=== PATIENT | female | born 2000 | race Caucasian/White ===

== ENCOUNTER 2019-08-29 13:29 | Inpatient (IN) | payer OTHER ==
[2019-08-29] MEDS ORDERED: Iopamidol-370 76% 500 ML 1 ML ONE (14:00)
[2019-08-29 14:28] LABS: Hemoglobin 13.7 g/dL (12.0-16.0); Mean Corpuscular HGB CONC 34.2 g/dL (32.0-36.0); Mean Corpuscular Hemoglobin 30.1 pg (25.0-35.0); Mean Corpuscular Volume 87.9 fL (78.0-98.0); Mean Platelet Volume 8.1 fL (7.4-10.4); Platelet Count 223 thou/uL (130-400); RBC Distribution Width 12.5 % (11.5-14.5); Red Blood Cell (RBC) Count 4.54 mill/uL (4.00-5.20); White Blood Cell (WBC) Count 14.5 thou/uL (4.8-10.8)
[2019-08-29 14:50] LABS: ALT (SGPT) 352 U/L (8-55); AST (SGOT) 239 U/L (5-30); Albumin 3.7 g/dL (3.5-5.0); Alkaline Phosphatase 496 U/L (40-100); Anion Gap 12 mmol/L (10-20); BUN (Urea Nitrogen) 7 mg/dL (8.4-21.0); Bilirubin, Total 6.5 mg/dL (0.2-1.2); Calc. Creatinine Clearance 0 mL/min (70-130); Calcium 9.3 mg/dL (7.8-10.44); Carbon Dioxide 29 mmol/L (22-29); Chloride 97 mmol/L (98-107); Estimated GFR-MDRD Greater than 90; Globulin 3.9 g/dL (2.4-3.5); Glucose 98 mg/dL (70-105); Potassium 3.7 mmol/L (3.5-5.1); Protein, Total 7.6 g/dL (6.0-8.3); Sodium 134 mmol/L (136-145)
[2019-08-29 15:05] LABS: Band 13 % (5-11); Lymphocytes 11 % (28-48); MDiff Complete? YES; Monocytes 11 % (0-4); Myelocyte 1 % (0-0); Neutrophil 6 % (31-61); Platelet Morphology Comment Appears Adequate; Polychromasia SLIGHT = 2-3 cells (100X) (0-2/hpf); Reactive Lymphocytes 58 % (0-10); Reflex for Review?? YES; Target Cells SLIGHT = 2-5 cells (100X) (0-1/hpf)
--- NOTE | 2019-08-29 16:17 | ULT ---
Sonogram right upper quadrant HISTORY: Right upper quadrant pain. FINDINGS: At the gallbladder fossa, a fluid distended gallbladder is not visible. A collapsed structu re has the appearance of a completely decompressed gallbladder without focal abnormality evident. No shadowing stones visible. Common duct is 0.4 cm. Liver unremarkable without focal mass or intrahepatic biliary dilatation. No f ree fluid. IMPRESSION: No evidence of biliary obstruction or other acute abnormality.
[2019-08-29] MEDS ORDERED: metroNIDAZOLE 500 MG/100 ML BAG ONE (17:01)
[2019-08-29] MEDS ORDERED: Vancomycin HCl 1.25 GM in Sodium Chloride 0.9% 250 ML 250 ML IVPB SCH (17:15)
[2019-08-29 18:07] LABS: HBCM Index 0.46 S/CO (0-0.79); HBSAg Index 0.26 S/CO (0-0.99); Hep A IgM AB Non-Reactive (NonReactive); Hep A IgM S/CO 0.39 S/CO (0-0.79); Hep B Surf Ag Non-Reactive S/CO (NonReactive); Hep C IgG Ab Non-Reactive (NonReactive); Hep C Index 0.18 S/CO (0-0.79); Hepatitis B Core IgM Abs Non-Reactive (NonReactive)
[2019-08-29 18:12] LABS: Bacteria/HPF None Seen HPF (None Seen); Bilirubin 2+ (Negative); Blood, Urine Negative (Negative); Clarity Clear (Clear); Glucose, Urine (Dipstick) Normal (Negative); Leukocyte Negative Leu/uL (Negative); Nitrite Negative (Negative); Protein, Urine (Dipstick) 30 mg/dL (Neg-Trace); RBC/HPF 0-3 HPF (0-3); Squamous Epithelial 0-3 HPF (0-3); WBC/HPF 0-3 HPF (0-3)
[2019-08-29 18:14] LABS: Pregnancy Test - Urine (BHCG) Negative (Negative); Pregu Control Background? CLEAR/WHITE (CLR/WHITE); Pregu Control Bar Appear? YES (CONTROL BAR)
[2019-08-29] MEDS ORDERED: Sodium Chloride 0.9% 1,000 ML IV SCH (19:30)
--- NOTE | 2019-08-29 20:12 | CT ---
CT ABDOMEN AND PELVIS WITH IV CONTRAST: History: 18-year-old female with elevated LFTs. Patient has been diagnosed with Hepatitis B and infec tious mono. FINDINGS: The lung bases are clear. The liver, pancreas, adrenal glands, and kidneys are normal. The gallbladde r is contracted. The spleen is enlarged measuring 14 cm in AP dimension. No free air or lymphadenopathy is seen. There is a small amount of free fluid in the pelvis. Uterus a nd ovaries are present. Large and small bowel loops are not abnormally dilated. Appendix appears norm al. IMPRESSION: 1. Small amount of free fluid in the pelvis. 2. Mild splenomegaly. POS: OFF
[2019-08-29 21:38] VITALS: BMI 21.3
[2019-08-29] MEDS ORDERED: Guaifenesin DM 100-10/5 ML UDCUP PO PRN (22:25)
[2019-08-29] MEDS ORDERED: Senokot S 8.6-50 MG TAB PO PRN (22:25)
[2019-08-29] MEDS ORDERED: Ondansetron PF 4 MG/2 ML Vial IVP PRN (22:25)
[2019-08-29] MEDS ORDERED: Ondansetron ODT 4 MG TAB PO PRN (22:25)
[2019-08-29] MEDS ORDERED: traMADol HCl 50 MG TAB PO PRN (22:47)
--- NOTE | 2019-08-29 23:01 | HP ---
PRIMARY CARE PHYSICIAN: [facility] in [facility]. CHIEF COMPLAINT: Jaundice. HISTORY OF PRESENT ILLNESS: This is a 18-year-old white female without significant past medical history, who presented to the [facility] about 9 days ago with fevers, chills, body aches, runny nose, sore throat. She was diagnosed with infectious mononucleosis. The patient had a followup and she was noted to be jaundiced and so was sent into the hospital. Here, she was noted to have a significantly elevated bilirubin of 6.5, as well as elevations of her transaminases. She did have a leukocytosis of 14,000, however, was primarily reactive lymphocytes consistent with her diagnosis of mononucleosis. Urine was negative for infection. She had hepatitis A, B, and C panel done in the emergency room, which were all negative. She also had an ultrasound and a CT of the abdomen in the emergency room, which showed no evidence of biliary obstruction or other acute abnormalities in the liver. She did have some mild splenomegaly and a small amount of free fluid in the pelvis on the CT scan. The patient reports that she has been asymptomatic for the last 3 days or so except for the development of jaundice. All of her fevers have resolved and she has had no other symptoms at this time. REVIEW OF SYSTEMS: CONSTITUTIONAL: Initial fevers and chills as per HPI, now resolved. EYES: No double vision or blurred vision. ENT: No congestion, drainage, or any active sore throat. CARDIOVASCULAR: No chest pain. No palpitations or racing heart. PULMONARY: No coughing, wheezing, or shortness of breath. GASTROINTESTINAL: No abdominal pain. No nausea or vomiting. No diarrhea or constipation. GENITOURINARY: No dysuria or hematuria. MUSCULOSKELETAL: No muscle aches or joint pain. SKIN: No rashes or other lesions. She has had some itching for the last couple of days and she has had the development of jaundice of her skin and eyes. NEUROLOGICAL: No numbness, tingling, or focal weakness. PAST MEDICAL HISTORY: None. PAST SURGICAL HISTORY: None. PAST SOCIAL HISTORY: No tobacco, alcohol, or illicit drug use. The patient is a student at [employer]. FAMILY HISTORY: No family medical history that she knows of. ALLERGIES: THE PATIENT IS ALLERGIC TO CEFDINIR. CURRENT MEDICATIONS: 1. Nesha 24 Fe 1 mg/20 mcg tablets one tablet each night. 2. Tramadol as needed for pain. PHYSICAL EXAMINATION: VITAL SIGNS: Blood pressure 108/70, pulse 85, respirations 20, O2 saturation 97%, temperature 98. GENERAL: This is a well-developed, well-nourished white female, in no acute distress. HEENT: Pupils are equal, round, and reactive to light. She does have significant scleral icterus. Oropharynx clear without lesions, erythema, or exudate. NECK: Supple. No lymphadenopathy. No thyroid nodules or enlargement. HEART: Regular rate and rhythm. No murmurs, rubs, or gallops. LUNGS: Clear to auscultation bilaterally. No wheezes, crackles, or rhonchi. ABDOMEN: Soft, nontender to palpation. Normoactive bowel sounds. No hepatosplenomegaly or other masses palpable. EXTREMITIES: No clubbing, cyanosis, or edema. SKIN: She has diffuse jaundice, otherwise no other rashes or lesions. NEUROLOGICAL: Intact strength and sensation in all extremities. No facial droop. PSYCHIATRIC: Alert, oriented x3. Normal mood and affect. LABORATORY DATA: CBC with a white blood cell count of 14,000, 58% reactive lymphocytes, the rest of CBC was normal. Complete metabolic panel is notable for sodium of 134, chloride of 97, BUN of 7, total bilirubin of 6.5, AST of 239, ALT of 352, alkaline phosphatase of 496. The rest was normal. Urinalysis showed 30 protein, trace ketones, 2+ bilirubin and elevated urobilinogen. No evidence of infection. Serologies are negative for hepatitis A IgM antibody negative. Hepatitis B surface antigen, negative for hepatitis B core IgM antibody, and negative for hepatitis C antibody. ASSESSMENT: 1. Acute jaundice, likely secondary to her infectious mononucleosis. No evidence for biliary obstruction at this time. We will consult Gastroenterology to evaluate her and we will recheck the enzymes in the morning. Hopefully, if they are improving, she will go home. We will get Gastroenterology's recommendations as well for any further workup or treatment needed. 2. Infectious mononucleosis, appears to be improving except as far as the hepatitis and cholestasis are concerned. 3. Gastrointestinal prophylaxis. Put the patient on Pepcid while in the hospital. 4. Deep venous thrombosis prophylaxis. We will have the patient ambulate frequently. Job ID: [id number]
[2019-08-29] MEDS: Sodium Chloride 0.9% 1,000 ML IV SCH (23:04)
[2019-08-30] MEDS: Sodium Chloride 0.9% 1,000 ML IV SCH (05:39)
[2019-08-30 05:45] LABS: INR-International Normal Ratio 0.9; Prothrombin Time 12.3 SEC (12.0-14.7)
[2019-08-30 06:09] LABS: ALT (SGPT) 289 U/L (8-55); AST (SGOT) 191 U/L (5-30); Albumin 3.2 g/dL (3.5-5.0); Alkaline Phosphatase 440 U/L (40-100); Anion Gap 11 mmol/L (10-20); BUN (Urea Nitrogen) 4 mg/dL (8.4-21.0); Bilirubin, Total 5.8 mg/dL (0.2-1.2); Calc. Creatinine Clearance 132 mL/min (70-130); Calcium 8.8 mg/dL (7.8-10.44); Carbon Dioxide 25 mmol/L (22-29); Chloride 103 mmol/L (98-107); Estimated GFR-MDRD Greater than 90; Globulin 3.5 g/dL (2.4-3.5); Glucose 97 mg/dL (70-105); Potassium 4.1 mmol/L (3.5-5.1); Protein, Total 6.7 g/dL (6.0-8.3); Sodium 135 mmol/L (136-145)
[2019-08-30 08:02] LABS: Band 5 % (5-11); Hemoglobin 12.3 g/dL (12.0-16.0); Lymphocytes 40 % (28-48); MDiff Complete? YES; Mean Corpuscular HGB CONC 33.3 g/dL (32.0-36.0); Mean Corpuscular Hemoglobin 29.3 pg (25.0-35.0); Mean Corpuscular Volume 87.9 fL (78.0-98.0); Mean Platelet Volume 8.5 fL (7.4-10.4); Metamyelocyte 2 % (0-0); Monocytes 8 % (0-4); Myelocyte 1 % (0-0); Neutrophil 9 % (31-61); Platelet Count 231 thou/uL (130-400); Platelet Morphology Comment Appears Adequate; RBC Distribution Width 12.7 % (11.5-14.5); RBC Morphology Normal; Reactive Lymphocytes 35 % (0-10); White Blood Cell (WBC) Count 13.3 thou/uL (4.8-10.8)
[2019-08-30] MEDS ORDERED: Famotidine 20 MG TAB PO SCH (09:00)
[2019-08-30 11:56] VITALS: BP 109/66; TEMP 98.2
[2019-08-30] MEDS ORDERED: NORETHINDRONE E ESTRADIOL IRON PO SCH (21:00)
--- NOTE | 2019-08-31 05:09 | DIS ---
DATE OF ADMISSION: 08/29/2019 DATE OF DISCHARGE: 08/30/2019 DISCHARGE DIAGNOSES: 1. Mononucleosis with Avis-Kwan virus. 2. Acute hepatitis secondary to #1. 3. Hyperbilirubinemia secondary to #1. 4. Pruritus secondarily to hyperbilirubinemia. CONSULTATIONS: None. PERTINENT LABORATORY AND X-RAY FINDINGS: Total bilirubin ranged between 5.8 to 6.5. AST ranged between 191 to 239, ALT ranged between 289 to 352, alkaline phosphatase ranged between 440 to 496. CBC showed a white blood cell count ranging between 13.3 to 14.5. PT 12.3, INR 0.9. Urinalysis positive for bilirubin. Hepatitis A, B, and C panel negative on 08/29/2019. Abdominal ultrasound dated 08/29/2019 showed no acute pathology. CT of the abdomen and pelvis dated 08/29/2019 showed minimal free fluid in the pelvis. Mild splenomegaly. HOSPITAL COURSE: The patient was observed on the medical floor after initially presenting with generalized pruritus and jaundice. The patient was noted on screening metabolic panel with transaminitis as well as elevated bilirubin of 6.5 and presented to the emergency room after transfer from [facility] at [facility]. The patient underwent screening hepatitis A, B and C panel, which were negative. The patient with recent mono spot testing confirming mononucleosis. The patient received IV fluids and general supportive management in addition to education and reassurance. No specific intervention recommended at this time. The patient encouraged increased free water intake and general supportive management including Benadryl for itching. No specific recommendation per Gastroenterology Service for an acute intervention. I have examined the patient at the time of discharge and discussed followup instructions. The patient verbalized understanding and agreement ready for discharge on 08/30/2019. DISCHARGE MEDICATIONS: 1. Estradiol 1 tablet p.o. at bedtime. 2. Tramadol 50 mg p.o. daily p.r.n. 3. Benadryl [id number] p.r.n. FOLLOWUP: The patient may follow up with the [facility] within 7 days of discharge for repeat LFTs. CONDITION ON DISCHARGE: Stable. ACTIVITY: Ad-frantz. DIET: Regular. CODE STATUS: Full. DISPOSITION: To home, 08/30/2019. Job ID: [id number]
--- NOTE | 2019-09-01 09:57 | PQF ---
ALLIE JACKMAN CHARLES DO [id number] CLINICAL DOCUMENTATION CLARIFICATION FORM: POST DISCHARGE Addendum to original discharge summary date: ____ Late entry note date: __ DATE:09/01/2019 ATTN: DARRELL HACKETT DO Please exercise your independent, professional judgment in responding to the clarification form. Clinical indicators are provided on the bottom of this form for your review Please check appropriate box(s): [ x ] Hyponatremia please specify etiology, if known [ ] Hyponatremia due to SIADH (Syndrome of Inappropriate Secretion of Antidiuretic Hormone) [ ] Other diagnosis [ ] Unable to determine In addition, please specify: Present on Admission (POA): [ x ] Yes [ ] No [ ] Unable to determine CLINICAL INDICATORS - SIGNS / SYMPTOMS / LABS Sodium-134 on 08/29,Sodium on 08/30-Documented in Laboratory Acute hepatitis-Documented in Discharge summary on 08/30 by Darrell Hackett DO Mononucleosis with Avis-Kwan virus- Documented in Discharge summary on 08/30 by Darrell Hackett DO Hyperbilirubinemia- Documented in Discharge summary on 08/30 by Darrell Hackett DO RISK FACTORS Acute hepatitis-Documented in Discharge summary on 08/30 by Darrell Hackett DO Mononucleosis with Avis-Kwan virus- Documented in Discharge summary on 08/30 by Darrell Hackett DO TREATMENTS: Sodium chloride 0.9% 1000 Ml IV-Documented in Medication snapshot [employer] Winform Viewer (This form is maintained as a part of the permanent medical record) 2014 [employer]. All Rights Reserved [email or web address] [email or web address]
== END 2019-08-30 15:13 | disposition home or self-care (01) | DRG 442 ==
LOC: ERS 13:29 → T4-B 20:16
PROVIDERS: ADMIT Emergency Medicine; ATTEND Emergency Medicine
DX: B17.8 Other specified acute viral hepatitis (principal); E87.1 Hypo-osmolality and hyponatremia; B27.00 Gammaherpesviral mononucleosis without complication; E80.6 Other disorders of bilirubin metabolism; Z88.8 Allergy status to other drugs, medicaments and biological substances; L29.9 Pruritus, unspecified
CPT/HCPCS: 36415; 74177; 76705; 80053; 80074; 81003; 81015; 81025; 82248; 85025; 85060; 85610; 96360; J3370; J7050; Q9967

== ENCOUNTER 2021-03-05 11:35 | Outpatient (CLI) | payer OTHER | END 2021-03-05 11:36 | disposition home or self-care (01) | LOC: DTY/OP 11:35 | PROVIDERS: ATTEND Family Medicine | DX: E78.00 Pure hypercholesterolemia, unspecified (principal) | CPT/HCPCS: 97802 ==